=== PATIENT | female | born 1980 | race Asian ===

== ENCOUNTER 2017-12-12 09:51 | Emergency (ER) | payer BC ==
[2017-12-12] MEDS ORDERED: Maalox 30 mL Cup PO ONE (09:54)
[2017-12-12] MEDS ORDERED: Donnatal Liq 5 ML UDC PO STA (09:55)
[2017-12-12 10:18] LABS: % BASOPHILS 1.3 % (0.0-2.0); % EOSINOPHILS 7.9 % (0.0-5.0); % LYMPHOCYTES 25.5 % (20.0-50.0); % MONOCYTES 5.1 % (2.0-10.0); % NEUTROPHILS 60.2 % (40.0-80.0); BASOPHILE ABSOLUTE 0.1 Th/cumm (0-0.2); EOSINOPHILE ABSOLUTE 0.6 Th/cmm (0.1-0.4); HEMATOCRIT 37.5 % (41.0-60); HEMOGLOBIN 12.7 gm/dL (12-16); LYMPHOCYTE ABSOLUTE 1.9 Th/cmm (1.5-3.0); MEAN CELL VOLUME 88.3 fl (81-100); MONOCYTE ABSOLUTE 0.4 Th/cmm (0.3-1.0); NEUTROPHILE ABSOLUTE 4.6 Th/cmm (1.8-8.0); PLATELET COUNT 320 Th/cmm (150-400); RED BLOOD COUNT 4.25 Mil/cmm (3.80-5.10); RED CELL DISTRIBUTION WIDTH 11.5 % (11.5-20.0); WHITE BLOOD COUNT 7.6 Th/cmm (4.8-10.8)
[2017-12-12 10:21] LABS: ALB/GLOB RATIO 1.6 (1.0-1.8); ALBUMIN 4.1 gm/dL (3.7-5.3); ALKALINE PHOSPHATASE 45 U/L (34-104); ANION GAP 10.3 (7.0-16.0); BILIRUBIN,TOTAL 0.4 mg/dL (0.3-1.0); BUN - UREA NITROGEN 11 mg/dL (7-25); CALCIUM SERUM 8.8 mg/dL (8.6-10.3); CARBON DIOXIDE 24.3 mEq/L (21.0-31.0); CHLORIDE 107 mEq/L (98-107); CREATININE - SERUM 0.6 mg/dL (0.6-1.2); GFR AFRICAN-AMERICAN > 60.0 ml/min (>90); GFR NON AFRICAN-AMERICAN > 60.0 ml/min; GLUCOSE 93 mg/dL (70-105); MAGNESIUM 2.1 mg/dL (1.9-2.7); PHOSPHOROUS 2.5 mg/dL (2.5-5.0); POTASSIUM SERUM 3.6 mEq/L (3.5-5.1); SGOT 16 U/L (13-39); SGPT/ALT 12 U/L (7-52); SODIUM SERUM 138 mEq/L (136-145); TOTAL PROTEIN,SERUM 6.7 gm/dL (6.0-8.3)
[2017-12-12] MEDS ORDERED: Maalox 30 mL Cup ONE (10:23)
[2017-12-12 10:35] LABS: DDIMER QUANT 683 ng/mL (100-400)
[2017-12-12] MEDS ORDERED: IOHEXOL 350mgI/mL 150mL IV ONE (10:54)
[2017-12-12 11:11] LABS: INR 0.9 (0.5-1.4); PROTHROMBIN TIME (TEST) 9.4 SECONDS (9.5-11.5)
--- NOTE | 2017-12-12 13:06 | ED Physician Chart ---
ED Chief Complaint/HPI - Patient Information Date Seen:: 12/12/17 Time Seen:: 09:54 Chief Complaint:: sob and chest pain History of Present Illness:: sob and chest pain in a patient who is 4 months post and who had tomato soup for dinner last night. Allergies:: Allergies Allergy/AdvReac Type Severity Reaction Status Date / Time No Known Allergies Allergy Verified 12/12/17 09:53 Vitals:: Vital Signs - 8 hr 12/12/17 12/12/17 09:54 11:49 Temp 96.7 F 97.0 F HR 68 59 RR 22 15 BP 102/43 98/53 O2 Sat % 99 Historian:: Patient Review:: Nurse's Note Reviewed ED Review of Systems - Review of Systems General/Constitutional: No fever, No chills, No weight loss, No weakness, No diaphoresis, No edema, No loss of appetite Skin: No skin lesions, No rash, No bruising Head: No headache, No light-headedness Eyes: No loss of vision, No pain, No diplopia ENT: No earache, No nasal drainage, No sore throat, No tinnitus Neck: No neck pain, No swelling, No thyromegaly, No stiffness, No mass noted Cardio Vascular: Chest pain, No palpitations, No PND, No orthopnea Pulmonary: SOB, No cough, No sputum, No wheezing GI: No nausea, No vomiting, No diarrhea, No pain, No melena, No hematochezia, No constipation, No hematemesis G/U: No dysuria, No frequency, No hematuria Musculoskeletal: No bone or joint pain, No back pain, No muscle pain Endocrine: No polyuria, No polydipsia Psychiatric: No prior psych history, No depression, No anxiety, No suicidal ideation Hematopoietic: No bruising, No lymphadenopathy Allergic/Immuno: No urticaria, No angioedema Neurological: No syncope, No focal symptoms, No weakness, No paresthesia, No headache, No seizure, No dizziness, No confusion, No vertigo ED Past Medical History - Past Medical History Obtainable: Yes Past Medical History: No significant medical hx ED Physical Exam - Physical Examination General/Constitutional: Awake Head: Atraumatic Eyes: Lids, conjuctiva normal Skin: Nl inspection, No rash, No skin lesions ENMT: External ears, nose nl Neck: Nontender, No nuchal rigidity Respiratory: Nl effort/Exclusion, Clear to Auscultation, No Wheeze/Rhonchi/Rales Cardio Vascular: RRR, No murmur, gallop, rubs, NL S1 S2 GI: No tenderness/rebounding/guarding : No CVA tenderness Extremities: No tenderness or effusion, Full ROM Neuro/Psych: Alert/oriented, Judgement/insight normal, Mood normal, Normal gait , No focal deficits Misc: Normal back ED Labs/Radiology/EKG Results - Lab Results Results: Laboratory Tests 12/12/17 12/12/17 12/12/17 10:00 10:00 10:00 WBC 7.6 RBC 4.25 Hgb 12.7 Hct 37.5 L MCV 88.3 MCH 30.0 MCHC Differential 34.0 RDW 11.5 Plt Count 320 MPV 7.0 Neutrophils % 60.2 Lymphocytes % 25.5 Monocytes % 5.1 Eosinophils % 7.9 H Basophils % 1.3 PT INR PTT (Actin FS) D-Dimer 683 H Sodium 138 Potassium 3.6 Chloride 107 Carbon Dioxide 24.3 Anion Gap 10.3 BUN 11 Creatinine 0.6 Est GFR ( Amer) > 60.0 Est GFR (Non-Af Amer) > 60.0 BUN/Creatinine Ratio 18.3 Glucose 93 Calcium 8.8 Phosphorus 2.5 Magnesium 2.1 Total Bilirubin 0.4 AST 16 ALT 12 Alkaline Phosphatase 45 Troponin I < 0.01 L Total Protein 6.7 Albumin 4.1 Globulin 2.6 Albumin/Globulin Ratio 1.6 POC Ur Test 12/12/17 12/12/17 10:00 10:11 WBC RBC Hgb Hct MCV MCH MCHC Differential RDW Plt Count MPV Neutrophils % Lymphocytes % Monocytes % Eosinophils % Basophils % PT 9.4 L INR 0.90 PTT (Actin FS) 25.4 L D-Dimer Sodium Potassium Chloride Carbon Dioxide Anion Gap BUN Creatinine Est GFR ( Amer) Est GFR (Non-Af Amer) BUN/Creatinine Ratio Glucose Calcium Phosphorus Magnesium Total Bilirubin AST ALT Alkaline Phosphatase Troponin I Total Protein Albumin Globulin Albumin/Globulin Ratio POC Ur Test Negative ED Assessment - Assessment General Assessment: EKG from 09:44:27 a.m. reveals normal sinus rhythm, flipped t wave in AVR and V1. Assessment/Comments:: feel better after having the GI cocktail. Pain went from a 2 to 0. She received the GI cocktail after the elevated ddimer was worked up since we didn't want her to nausea in the CT scan area. ED Septic Shock - . Is Septic Shock (SBP<90, OR Lactate>4 mmol\L) present?: No - <6hrs of presentation: Vital Signs: Vital Signs - 8 hr 12/12/17 12/12/17 09:54 11:49 Temp 96.7 F 97.0 F HR 68 59 RR 22 15 BP 102/43 98/53 O2 Sat % 99 ED Reassessment (Disposition) - Reassessment Reassessment Condition:: Improved - Diagnosis Diagnosis:: Gastroesophageal reflux disease - Aftercare/Follow up Instructions Aftercare/Follow-Up Instructions:: Refer to Discharge Instructions Medication Prescribed:: Ranitidine 150 mg po bid # 60 - Patient Disposition Discharge/Transfer:: Home Condition at Disposition:: Stable, Improved
--- NOTE | 2017-12-13 08:18 | Diagnostic Imaging Report ---
CT angiogram of the chest with intravenous contrast (CTA) HISTORY: Pain, shortness of breath Total DLP equals 259 CTDI equals 20.0 Following administration of intravenous contrast, axial sections were obtained from a level above the clavicles down to level below the diaphragm. There is normal opacification of main, right, and left pulmonary arteries. No intraluminal filling defects are seen. Specifically, no evidence of pulmonary embolism. The heart size is normal. No abnormal mediastinal masses. The hilar regions are unremarkable. No focal pulmonary parenchymal processes. No pleural fluid. IMPRESSION: 1. No acute abnormalities. No evidence of pulmonary embolism.
--- NOTE | 2017-12-13 08:36 | Diagnostic Imaging Report ---
Portable chest x-ray History: Pain Allowing for portable technique the heart size is normal. No focal pulmonary parenchymal processes. No hilar or mediastinal abnormalities. Impression: No acute abnormalities.
== END 2017-12-12 13:23 | disposition home or self-care (01) ==
LOC: ER 09:51
DX: K21.9 Gastro-esophageal reflux disease without esophagitis (principal)
CPT/HCPCS: 36415-UA; 71045-TC; 71275-TC; 80053-TC; 81025-TC; 83735-TC; 84100-TC; 84484-TC; 85025-TC; 85379-TC; 85610-TC; 93005